=== PATIENT | male | born 1990 ===

== ENCOUNTER 2022-01-25 01:05 | Emergency (ER) | payer SELFPAY ==
[2022-01-25 01:19] VITALS: BP 128/56; PULSE 79; RESP 20; TEMP 36.7; O2SAT 97
--- NOTE | 2022-01-25 01:33 | PC.NURSE ---
Patient states he is going home, states I can't wait any more, I'm going to a different hospital. Patient informed of the risks of leaving before being seen by a provider. Patient ambulated out of the ED with a steady gait at [id number].
== END 2022-01-25 01:33 | disposition left against medical advice (07) ==
LOC: ANHED 01:55
DX: Z53.21 Procedure and treatment not carried out due to patient leaving prior to being seen by health care provider (principal)
CPT/HCPCS: 99199